=== PATIENT | female | born 1965 | race Caucasian/White ===

== ENCOUNTER → 2018-05-16 | Outpatient (CLI) | payer BC ==
--- NOTE | 2018-05-16 15:44 | Diagnostic Imaging Report ---
INDICATION: Lump in the right groin. FINDINGS: Sonographic interrogation of the area of lump was performed. There is a simple-appearing fluid collection at the area of palpable abnormality measuring 1.3 x 2.1 x 1.2 cm. This is medial to the femoral vessels. This does not appear to peristalse. No internal vascularity is seen. IMPRESSION: Simple fluid collection in the right groin at the area of palpable abnormality without evidence of internal vascularity or peristalsis. Fluid could be associated with an inguinal hernia. No other abnormality is seen. Dictated by: Dictated on workstation # [id number]
== END ==
LOC: RAD 11:02
PROVIDERS: ATTEND Nurse Practitioner
DX: R19.03 Right lower quadrant abdominal swelling, mass and lump (principal)
CPT/HCPCS: 76881

== ENCOUNTER → 2019-02-16 | Outpatient (CLI) | payer BC ==
--- NOTE | 2019-02-16 15:41 | Diagnostic Imaging Report ---
PROCEDURE: MRI lumbar spine. TECHNIQUE: Multiplanar, multisequence MRI of the lumbar spine was performed without contrast. INDICATION: Low back pain which radiates into the right lower extremity with paresthesia FINDINGS: There is Grade 1 anterolisthesis of L4 on L5. This is associated with advanced degenerative facet arthropathy and associated ligamentum flavum hypertrophy. Disc bulging at this level contribute with other findings to result in high-grade trefoil type spinal stenosis with moderate bilateral neural foraminal stenosis. There is also diffuse bulging of the L3-4 disc with degenerative facet arthropathy causing mild left and moderate right neural foraminal stenosis. At L2-3 there is disc bulging with mild bilateral neural foraminal stenosis. L1-2 disc is unremarkable in appearance however there is central protrusion of the T12-L1 disc which indents the ventral thecal sac at the level of the conus medullaris. No marrow signal abnormality is seen to indicate a fracture. 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 There is also mild left and moderate right neural foraminal stenosis at the L3-4 level and mild bilateral neural foraminal stenosis at L2-3. Dictated by: Dictated on workstation # [id number]
== END ==
LOC: RAD 14:31
PROVIDERS: ATTEND Physician Assistant
DX: M48.061 Spinal stenosis, lumbar region without neurogenic claudication (principal); M46.86 Other specified inflammatory spondylopathies, lumbar region; M51.26 Other intervertebral disc displacement, lumbar region; M43.16 Spondylolisthesis, lumbar region
CPT/HCPCS: 72148

== ENCOUNTER 2021-08-06 13:02 | Outpatient (RCR) | payer BC | END 2021-10-27 16:00 | disposition home or self-care (01) | PROVIDERS: ATTEND Emergency Medicine | DX: S52.135A Nondisplaced fracture of neck of left radius, initial encounter for closed fracture (principal); W19.XXXA Unspecified fall, initial encounter ==